=== PATIENT | female | born 1960 | race Caucasian/White ===

== ENCOUNTER → 2024-11-18 09:11 | Outpatient (CLI) | payer MEDICARE, OTHER, SELFPAY ==
[2024-11-18 20:50] LABS: Blood Urea Nitrogen 14 mg/dL (7-17); Calcium 9.2 mg/dL (8.4-10.2); Carbon Dioxide 28 mmol/L (22-32); Chloride 104 mmol/L (98-107); Cholesterol 192 mg/dL (140-199); Estimated Glomerular Filt Rate > 60 mL/min (>60); Glucose 101 mg/dL (70-99); HDL Cholesterol 50 mg/dL (40-60); HEMOLYSIS < 15 (0-50); Hemoglobin A1C% w Est Avg Glu 5.6 % (4.0-6.0); Sodium 138 mmol/L (137-145); Triglycerides 76 mg/dL (35-150)
[2024-11-18 21:01] LABS: Potassium 4.2 mmol/L (3.4-5.1)
[2024-11-18 21:22] LABS: Ferritin 20 ng/mL (11-264)
== END ==
PROVIDERS: PCP Family Medicine; Visit Provider Family Medicine
DX: E78.2 Mixed hyperlipidemia (principal); R73.09 Other abnormal glucose; N95.0 Postmenopausal bleeding; G47.00 Insomnia, unspecified
CPT/HCPCS: 80048; 80061; 82728; 83036